=== PATIENT | female | born 1995 | race Caucasian/White ===

== ENCOUNTER → 2023-09-28 15:49 | Outpatient (REF) | payer OTHER, SELFPAY | LOC: PNTC 15:49 | PROVIDERS: ATTENDING PHYSICIAN Obstetrics & Gynecology | DX: O36.0131 Maternal care for anti-D [Rh] antibodies, third trimester, fetus 1 (principal) | CPT/HCPCS: 36415; 86850; 86900; 86901; J2790 ==

== ENCOUNTER 2023-12-08 18:12 | Observation (INO) | payer OTHER, SELFPAY ==
[2023-12-08 18:27] VITALS: BMI 30.9
[2023-12-08 18:30] VITALS: BP 119/75
== END 2023-12-08 20:58 | disposition home or self-care (01) ==
LOC: LDRP 18:12
PROVIDERS: ADMITTING PHYSICIAN Obstetrics & Gynecology
DX: R10.2 Pelvic and perineal pain (principal); Z3A.38 38 weeks gestation of pregnancy; O99.343 Other mental disorders complicating pregnancy, third trimester; F41.9 Anxiety disorder, unspecified; K58.9 Irritable bowel syndrome, unspecified; Z91.410 Personal history of adult physical and sexual abuse
CPT/HCPCS: 59025; G0378

== ENCOUNTER 2023-12-22 07:53 | Inpatient (IN) | payer OTHER, SELFPAY ==
[2023-12-22 07:58] VITALS: BP 122/75; BMI 30.9
[2023-12-22] MEDS: LR 1000 IV ×4 (08:30→15:46)
[2023-12-22 08:43] LABS: % Basophils 0.2 % (0-2); % Eosinophils 0.1 % (0-6); % Immature Granulocytes 0.2 % (0-0.5); % Lymphocytes 10.4 % (20.5-51.1); % Monocytes 4.6 % (1.7-9.3); % Neutrophils 84.5 % (42.2-75.2); Absolute Lymphocytes 1.1 10^3/uL (1.2-3.4); Absolute Monocytes 0.5 10^3/uL (0.1-0.6); Absolute Neutrophils 8.7 10^3/uL (1.4-6.5); Hematocrit 33.6 % (37.0-47.0); Hemoglobin 11.6 g/dL (12.0-16.0); Mean Corp Hgb Conc. 34.5 g/dL (33.0-37.0); Mean Corpuscular Hgb 30.7 pg (27.0-31.0); Mean Corpuscular Volume 88.9 fL (81.0-99.0); Nucleated Red Blood Cells % 0 %; Platelet Count 209 10^3/uL (130-400); Red Blood Cell Count 3.78 10^6/uL (4.20-5.40); White Blood Cell Count 10.3 10^3/uL (4.8-10.8)
[2023-12-22] MEDS: FENTANYL/BUPIVACAINE 100 EPIDURAL ×2 (14:01→21:20)
[2023-12-22] MEDS: SUBLIMAZE 100 MCG EPIDURAL (14:01)
[2023-12-22] MEDS: PITOCIN 30 UNITS/NSS 500 ML IV (14:45)
[2023-12-23] MEDS: PITOCIN 30 UNITS/NSS 500 ML IV (01:11)
[2023-12-23] MEDS: MOTRIN 600 MG PO ×3 (02:50→15:13)
[2023-12-23] MEDS: PRENATAL PLUS 1 TABLET PO (08:30)
[2023-12-24 04:40] LABS: Hematocrit 28.8 % (37.0-47.0); Hemoglobin 9.7 g/dL (12.0-16.0)
[2023-12-24] MEDS: PRENATAL PLUS 1 TABLET PO ×2 (07:57→07:58)
[2023-12-24] MEDS: MOTRIN 600 MG PO (07:57)
[2023-12-24] MEDS: SENOKOT-S 1 TABLET PO (07:57)
[2023-12-24 12:14] LABS: Syphilis/T. pallidum Ab Reflex Negative (Negative)
[2023-12-24] MEDS: HYPERRHO S-D 1500 UNIT IM (13:22)
[2023-12-24] MEDS: FEOSOL 325 MG PO (13:23)
== END 2023-12-24 14:32 | disposition home or self-care (01) | DRG 807 ==
LOC: LDRP 07:53
PROVIDERS: ADMITTING PHYSICIAN Obstetrics & Gynecology; FAMILY PHYSICIAN Family Medicine
PROC: 10907ZC Drainage of Amniotic Fluid, Therapeutic from Products of Conception, Via Natural or Artificial Opening (ICD-10-PCS; 2023-12-22)
PROC: 10E0XZZ Delivery of Products of Conception, External Approach (ICD-10-PCS; 2023-12-23)
PROC: 3E0334Z Introduction of Serum, Toxoid and Vaccine into Peripheral Vein, Percutaneous Approach (ICD-10-PCS; 2023-12-24)
DX: O48.0 Post-term pregnancy (principal); Z37.0 Single live birth; Z3A.40 40 weeks gestation of pregnancy; O26.893 Other specified pregnancy related conditions, third trimester; Z67.11 Type A blood, Rh negative
CPT/HCPCS: 85014; 85018; 85025; 85461; 86780; 86850; 86900; 86901; J2790

== ENCOUNTER 2024-07-18 13:21 | Emergency (ER) | payer OTHER, SELFPAY ==
[2024-07-18 13:24] VITALS: BP 126/83
--- NOTE | 2024-07-18 13:59 | ED.GENMED ---
History of Present Illness
General
Chief Complaint: Back Pain
Source: patient
Exam Limitations: none
Time Seen by Provider: 07/18/24 13:33
Nursing documentation reviewed up to this point in time: agreed with
History of Present Illness
History of Present Illness:
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 Denies any associated shortness of breath nausea vomiting numbness weakness or
diaphoresis. The chest pain is improved she now some achiness to her back as well. She is also had some general fatigue body aches. Her family has had an upper respiratory virus over the past few days.
Past History
Past History
ED Past Medical History: None
ED Past Surgical History: None
Social History
Tobacco: Non-smoker
Living: with family
Employment: Student
Review of Systems
Review of Systems
Allergies reviewed?: Yes
All Other Systems: ROS reviewed and negative except as documented in HPI and ROS
Phy Exam
Physical Exam
Physical Exam:
GENERAL: Alert , in no apparent distress
EYE: pupils equal and reactive
NECK: Supple, no significant adenopathy.
ENT: o/p clr, mmm.
CARDIAC: Regular rate and rhythm .
LUNGS: Clear breath sounds bilaterally, no acute respiratory distress, no wheezes/rales/rhonchi
ABDOMEN: Soft, without focal tenderness, no r/g, no cvat
NEUROLOGICAL: Alert and oriented, no focal neuro deficits
SKIN: Warm and dry, skin intact.
MUSCULOSKELETAL: No edema, well perfused.
PSYCH: Normal and appropriate interaction.
Course
Orders/Labs/Results
Orders:
Orders
07/18/24 13:22
Electrocardiogram (*1) Urgent
Reason for Study: Chest Pain
EKG- Treatment ONCE
07/18/24 13:55
Test Result ONCE
Chest [CR Chest - 2 Views ] Urgent
Comment:
Reason For Exam: cp back pain
07/18/24 14:02
Beta Hcg Serum Qualitative Screen [HCG, Serum Qualitative Screen] Urgent
CBC/With Diff [Complete Blood Count/With Diff] Urgent
CMP [Comprehensive Metabolic Panel] Urgent
07/18/24 14:02
07/18/24 14:02
Vital Signs
Initial and Last Documented VS:
Initial Vital Signs
Temp Pulse Resp BP Pulse Ox
98 F 77 16 126/83 98
07/18/24 13:24 07/18/24 13:24 07/18/24 13:24 07/18/24 13:24 07/18/24 13:24
Last Documented Vital Signs
Temp Pulse Resp BP Pulse Ox
98 F 77 16 126/83 98
07/18/24 13:24 07/18/24 13:24 07/18/24 13:24 07/18/24 13:24 07/18/24 13:24
MDM/Problems Addressed
MDM/Problems Addressed:
28-year-old female presenting to the emergency department today with concerns of a sharp achy chest pain to the central chest initially nonradiating starting 5 hours that is since resolved now just achiness in her left upper back. No associated
shortness of breath numbness weakness nausea vomiting diaphoresis. Denies similar symptoms in the past. Multiple family members with a viral upper respiratory syndrome over the past few days. On arrival vital signs are normal patient no distress
somewhat reproduced to the chest and back with motion pushing and pulling of the upper extremity. EKG is normal. Patient without any risk factors for PE. No recent trauma surgery immobilization no estrogen product usage no leg swelling. Patient
is PERC negative. Chest x-ray normal labs unremarkable no evidence of any likely life threats at this time advised for close outpatient follow-up with a primary care doctor. Return precautions given.
*Critical Care Note
Total Time (30-74mins, 75-104mins- exclusive of procedures): Not Applicable
ED Attending Note
-
Portions of this chart may have been created with voice recognition software.� Occasional wrong word or��sound alike� substitutions may have occurred due to the inherent limitations of voice recognition software.
Discharge Plan
Departure
Patient Disposition: Home (Routine Discharge)
Date of Disposition: 07/18/24
Time of Disposition: 15:29
Patient with high blood pressure during this ER visit?: No
Condition: Good
Covid-19: Not Applicable
Discharge Problem:
Chest pain
Instructions: Chest Pain PCP Follow Up
Prescriptions:
No Action
vit-iron fum-folic ac [ Tablet] 28 mg iron- 800 mcg Tablet
1 tab PO DAILY
acetaminophen 325 mg Tablet
650 mg PO Q4HPRN PRN (Reason: mild pain) Qty: 0 0RF
sennosides-docusate sodium [Stool Softener-Stimulant Laxat] 8.6-50 mg Tablet
1 tab PO DAILYPRN PRN (Reason: constipation) Qty: 0 0RF
ferrous sulfate [FeroSul] 325 mg (65 mg iron) Tablet
325 mg PO BID Qty: 0 0RF
ibuprofen 600 mg Tablet
600 mg PO Q6HPRN PRN (Reason: moderate pain/cramps) Qty: 30 0RF
Referrals:
Arnoldo Martin MD [Family Provider] -
Activity Restrictions/Additional Instructions:
You came to the emergency department today with concerns of chest pain and back pain. Here had a reassuring assess normal chest x-ray EKG and labs. Please feel closely with the primary care doctor. Return to the emergency department any
worsening, new or concerning symptoms.
Interventions
Interventions:
*Risk Screen - Suicide Last Done: 07/18/24 13:24
*General Assessment Last Done: 07/18/24 13:24
*Neglect/Abuse Screening Last Done: 07/18/24 13:24
ED-Musculoskeletal Assessment Last Done: 07/18/24 14:35
Discharge Date and Time
Print Language: BRUNEIAN
[2024-07-18 14:18] LABS: % Basophils 0.8 % (0-2); % Eosinophils 1.7 % (0-6); % Immature Granulocytes 0.3 % (0-0.5); % Lymphocytes 29.7 % (20.5-51.1); % Monocytes 6.7 % (1.7-9.3); % Neutrophils 60.8 % (42.2-75.2); Absolute Basophils 0.1 10^3/uL (0-0.2); Absolute Eosinophils 0.1 10^3/uL (0-0.7); Absolute Monocytes 0.4 10^3/uL (0.1-0.6); Hematocrit 37.3 % (37.0-47.0); Hemoglobin 12.9 g/dL (12.0-16.0); Mean Corp Hgb Conc. 34.6 g/dL (33.0-37.0); Mean Corpuscular Hgb 29.3 pg (27.0-31.0); Mean Corpuscular Volume 84.8 fL (81.0-99.0); Mean Platelet Volume 9.7 fL (7.4-10.4); Nucleated Red Blood Cells % 0 %; Platelet Count 294 10^3/uL (130-400); Red Cell Dist. Width 12.1 % (11.5-14.5); White Blood Cell Count 6.6 10^3/uL (4.8-10.8)
[2024-07-18 14:31] LABS: ALT (SGPT) 16 U/L (0-35); AST (SGOT) 20 U/L (14-36); Albumin 4.6 g/dl (3.5-5.0); Alkaline Phosphatase 41 U/L (38-126); Blood Urea Nitrogen 11 mg/dl (7-17); Calcium 9.5 mg/dl (8.4-10.2); Carbon Dioxide 26 mmol/L (22-30); Chloride 103 mmol/L (98-107); Glucose 93 mg/dl (70-99); Potassium 3.9 mmol/L (3.5-5.1); Sodium 140 mmol/L (135-145); Total Bilirubin 0.4 mg/dl (0.2-1.3); eGFR > 60.00
[2024-07-18 14:48] LABS: HCG, Serum Qualitative Screen Negative
== END 2024-07-18 15:52 | disposition home or self-care (01) ==
LOC: EMR 13:21
PROVIDERS: Physician Assistant; EMERGENCY PHYSICIAN Emergency Medicine; FAMILY PHYSICIAN Family Medicine
DX: R07.9 Chest pain, unspecified (principal); M54.9 Dorsalgia, unspecified
CPT/HCPCS: 99285; 71046; 80053; 84703; 85025; 93005

== ENCOUNTER → 2024-11-02 15:14 | Outpatient (REF) | payer OTHER, SELFPAY | LOC: PNTC 15:14 | PROVIDERS: ATTENDING PHYSICIAN Obstetrics & Gynecology | DX: Z36.0 Encounter for antenatal screening for chromosomal anomalies (principal); Z36.82 Encounter for antenatal screening for nuchal translucency | CPT/HCPCS: 36415; 76801; 76813 ==

== ENCOUNTER → 2024-12-28 15:42 | Outpatient (REF) | payer OTHER, SELFPAY | LOC: PNTC 15:42 | PROVIDERS: ATTENDING PHYSICIAN Obstetrics & Gynecology | DX: Z34.82 Encounter for supervision of other normal pregnancy, second trimester (principal) | CPT/HCPCS: 76805; 76817 ==

== ENCOUNTER → 2025-02-22 14:01 | Outpatient (REF) | payer OTHER, SELFPAY | LOC: PNTC 14:01 | PROVIDERS: ATTENDING PHYSICIAN Obstetrics & Gynecology | DX: Z34.90 Encounter for supervision of normal pregnancy, unspecified, unspecified trimester (principal) | CPT/HCPCS: 36415; 86850; 86900; 86901; 96372; J2790 ==

== ENCOUNTER 2025-05-10 07:47 | Inpatient (IN) | payer OTHER, SELFPAY ==
[2025-05-10 07:55] VITALS: BP 126/74; BMI 30.1
[2025-05-10] MEDS: LR 1000 IV ×2 (08:00→08:33)
[2025-05-10 08:21] LABS: Hematocrit 35.0 % (37.0-47.0); Hemoglobin 11.9 g/dL (12.0-16.0); Mean Corp Hgb Conc. 34.0 g/dL (33.0-37.0); Mean Corpuscular Volume 85.0 fL (81.0-99.0); Nucleated Red Blood Cells % 0 %; Platelet Count 245 10^3/uL (130-400); Red Cell Dist. Width 12.6 % (11.5-14.5)
[2025-05-10] MEDS: SUBLIMAZE 100 MCG EPIDURAL (08:33)
[2025-05-10] MEDS: FENTANYL/BUPIVACAINE 100 EPIDURAL (08:34)
[2025-05-10] MEDS: PITOCIN 30 UNITS/NSS 500 ML IV ×2 (12:43→16:20)
[2025-05-10] MEDS: COLACE 100 MG PO (19:36)
[2025-05-11] MEDS: MOTRIN 600 MG PO ×3 (00:51→16:50)
[2025-05-11] MEDS: TYLENOL 650 MG PO (04:50)
[2025-05-11 05:38] LABS: Hematocrit 29.1 % (37.0-47.0); Hemoglobin 9.8 g/dL (12.0-16.0)
[2025-05-11] MEDS: FEOSOL 325 MG PO ×2 (09:31→09:32)
[2025-05-11] MEDS: PRENATAL PLUS 1 TABLET PO (09:32)
[2025-05-11] MEDS: COLACE 100 MG PO ×2 (09:34→19:44)
[2025-05-11 13:16] LABS: Syphilis/T. pallidum Ab Reflex Negative (Negative)
[2025-05-12] MEDS: MOTRIN 600 MG PO (02:04)
[2025-05-12] MEDS: COLACE 100 MG PO (09:12)
[2025-05-12] MEDS: PRENATAL PLUS 1 TABLET PO (09:13)
[2025-05-12] MEDS: FEOSOL 325 MG PO (09:13)
== END 2025-05-12 11:53 | disposition home or self-care (01) | DRG 807 ==
LOC: LDRP 07:47
PROVIDERS: Obstetrics & Gynecology; ADMITTING PHYSICIAN Obstetrics & Gynecology
PROC: 10E0XZZ Delivery of Products of Conception, External Approach (ICD-10-PCS; 2025-05-10)
DX: O69.81X0 Labor and delivery complicated by cord around neck, without compression, not applicable or unspecified (principal); Z37.0 Single live birth; Z3A.39 39 weeks gestation of pregnancy; O77.0 Labor and delivery complicated by meconium in amniotic fluid; O90.81 Anemia of the puerperium; D64.9 Anemia, unspecified; M79.661 Pain in right lower leg; Z91.410 Personal history of adult physical and sexual abuse
CPT/HCPCS: 85014; 85018; 85025; 86780; 86850; 86870; 86900; 86901; 88307; 93971